=== PATIENT | female | born 1955 | race Caucasian/White ===

== ENCOUNTER 2016-11-16 11:46 | Emergency (ER) | payer MEDICARE, OTHER ==
[~2016-11-16] VITALS: Ht 162.6 cm; Wt 114.0 kg
[~2016-11-16 11:46] MED LIST: NORC7.5T PO
[2016-11-16 12:04] VITALS: BP 155/83; PULSE 98; RESP 16; TEMP 99; O2SAT 99
== END 2016-11-16 12:52 | disposition left against medical advice (07) ==
LOC: PHED 11:46
DX: M54.9 Dorsalgia, unspecified (principal); V49.9XXA Car occupant (driver) (passenger) injured in unspecified traffic accident, initial encounter
CPT/HCPCS: 99281